=== PATIENT | female | born 1960 | race Two or more races ===

== ENCOUNTER 2017-01-06 10:33 | Emergency (ER) | payer BC ==
[~2017-01-06] VITALS: Ht 170.2 cm; Wt 90.7 kg
--- NOTE | 2017-01-06 10:45 | NUR ---
PATIENT ARRIVED TO ER C/O ABDOMINAL/FLANK PAIN. PATIENT A/OX 4. BREATHING EVEN AND UNLABORED ON ROOM AIR. NO SOB. SAFETY AND COMFORT MEASURES IN PLACE, AWAITING MD ORDERS.
--- NOTE | 2017-01-06 11:00 | NUR ---
URINE OBTAINED AND SENT TO LAB
[2017-01-06 11:24] LABS: BASOPHILS # (AUTO) 0.2 /CMM (0.0-0.2); BASOPHILS % (AUTO) 3.2 % (0.0-2.0); EOSINOPHILS % (AUTO) 0.5 % (0.0-6.0); HEMATOCRIT 41 % (33-45); HEMOGLOBIN 13.3 g/dL (11.5-14.8); LYMPHOCYTES # (AUTO) 1.6 /CMM (0.8-4.8); LYMPHOCYTES % (AUTO) 28.6 % (20.0-44.0); MEAN CORPUSCULAR HEMOGLOBIN 27 PG (26.0-33.0); MEAN CORPUSCULAR HGB CONC 32 g/dl (31.0-36.0); MEAN CORPUSCULAR VOLUME 84 fL (82-100); MONOCYTES # (AUTO) 0.2 /CMM (0.1-1.30); MONOCYTES % (AUTO) 3.9 % (2.0-12.0); NEUTROPHILS # (AUTO) 3.7 /CMM (1.8-8.9); NEUTROPHILS % (AUTO) 63.8 % (43.0-81.0); PLATELET COUNT (AUTO) 163 /CMM (150-450); RDW COEFFICIENT OF VARIATION 15.2 (11.5-15.0); RED BLOOD CELL COUNT(AUTO) 4.89 MIL/uL (4.0-5.2); WHITE BLOOD COUNT (AUTO) 5.7 K/uL (4.3-11.0)
--- NOTE | 2017-01-06 11:30 | NUR ---
PATIENT TAKEN TO CT SCAN VIA WHEELCHAIR.
[2017-01-06 11:31] LABS: CALCIUM, SERUM 9.2 mg/dL (8.5-10.1); CREATININE 0.8 mg/dL (0.6-1.3); POTASSIUM 4.2 mmol/L (3.5-5.1)
[2017-01-06 11:36] LABS: ALBUMIN 3.7 g/dL (3.4-5.0); BILIRUBIN,DIRECT 0.1 mg/dL (0.0-0.2); BILIRUBIN,TOTAL 0.3 mg/dL (0.2-1.0); TOTAL PROTEIN, SERUM 7.5 g/dL (6.4-8.2)
--- NOTE | 2017-01-06 11:41 | NUR ---
PATIENT RETURNED FROM CT SCAN
[2017-01-06 12:08] LABS: APPEARANCE,URINE Clear (CLEAR); BILIRUBIN,URINE SMALL (NEGATIVE); BLOOD, URINE Trace-lysed Ery/uL (NEGATIVE); COLOR,URINE Yellow (YELLOW); KETONES,URINE Trace (NEGATIVE); LEUKOCYTE ESTERASE ,URINE Negative (NEGATIVE); NITRITE, URINE Negative (NEGATIVE); PROTEIN,URINE Negative (NEGATIVE); UGLUCOSE Negative (NEGATIVE); UROBILINOGEN,URINE 0.2 EU/dL (0.2)
[2017-01-06 12:15] VITALS: BP 135/86
--- NOTE | 2017-01-06 12:16 | NUR ---
PATIENT CLEARED FOR DISCHARGE PER MD. ALL TESTS NEGATIVE. PATIENT GIVEN PRESCRIPTION AND PROVIDED WITH EDUCATION. PATIENT VERBALIZES UNDERSTANDING. ID BAND REMOVED. PATIENT DISCHARGED HOME.
[2017-01-06 12:18] LABS: RBC,URINE 0-3 /HPF (0-2)
[2017-01-06 12:19] LABS: BACTERIA,URINE None seen /HPF (None Seen); MUCUS,URINE Few /LPF (None Seen); SQUAMOUS EPITHELIAL CELL,UR Few /HPF (None Seen)
== END 2017-01-06 12:16 | disposition home or self-care (01) ==
LOC: ER 10:35
DX: K65.4 Sclerosing mesenteritis (principal); I10 Essential (primary) hypertension
CPT/HCPCS: 36415; 72128; 74176; 80048; 80076; 81001; 83690; 85025; 99285; A4606; Z7610; 81000-TC